=== PATIENT | female | born 1970 | race Hispanic/Latino ===

== ENCOUNTER → 2022-01-30 | Outpatient (CLI) | payer OTHER ==
[~2022-01-30] VITALS: Ht 10.2 cm; Wt 132.4 kg
== END | disposition home or self-care (01) ==
LOC: DTH 08:24
PROVIDERS: ATTEND Surgery
DX: Z71.3 Dietary counseling and surveillance (principal); E78.5 Hyperlipidemia, unspecified; E78.00 Pure hypercholesterolemia, unspecified; I10 Essential (primary) hypertension; K21.9 Gastro-esophageal reflux disease without esophagitis; K76.0 Fatty (change of) liver, not elsewhere classified; G47.33 Obstructive sleep apnea (adult) (pediatric); E66.01 Morbid (severe) obesity due to excess calories; Z68.42 Body mass index [BMI] 45.0-49.9, adult
CPT/HCPCS: 97802

== ENCOUNTER 2022-02-14 07:48 | Day surgery (SDC) | payer OTHER ==
[2022-02-07 12:32] VITALS: BP 156/89
[~2022-02-14] VITALS: Ht 162.6 cm; Wt 130.3 kg
[~2022-02-14 07:48] MED LIST: 0.9% NACL 500ML IV.SOLN 500 ML IV SCH; AEC81 PO; HYDR25TA PO; OMEP20TA2 PO
[2022-02-14 08:55] VITALS: BP 198/58
[2022-02-14] MEDS ORDERED: PROPOFOL 10 MG/ML 20ML VIAL IV ONE (10:23)
[2022-02-14] MEDS ORDERED: LIDOCAINE PF 100MG/5ML (2%) SYRINGE 5ML ONE (10:24)
[2022-02-14 11:45] VITALS: BP 128/75
[2022-02-14 12:15] VITALS: BP 171/95
== END 2022-02-14 12:45 | disposition home or self-care (01) ==
LOC: DAH 07:48 → ENDO 07:48
PROVIDERS: ATTEND Surgery
DX: K21.9 Gastro-esophageal reflux disease without esophagitis (principal); I10 Essential (primary) hypertension; E11.9 Type 2 diabetes mellitus without complications; E66.01 Morbid (severe) obesity due to excess calories; Z90.49 Acquired absence of other specified parts of digestive tract; Z68.41 Body mass index [BMI] 40.0-44.9, adult; Z79.82 Long term (current) use of aspirin; Z79.899 Other long term (current) drug therapy; Z20.822 Contact with and (suspected) exposure to COVID-19
CPT/HCPCS: 71045; 87426; 93005; 43235; 84703; 36415; J2001; J2704; A4215; A4223; A4222; A4221; A4663; A4606

== ENCOUNTER 2022-02-14 14:00 | Inpatient (IN) | payer SELFPAY ==
[2022-02-12 10:42] LABS: BASOPHILS % (AUTO) 0.5 % (0.0-5.0); EOSINOPHILS % (AUTO) 1.5 % (0.0-8.0); HEMATOCRIT 33.2 % (36-48); LYMPHOCYTES % (AUTO) 35.2 % (21.0-51.0); MEAN CORPUSCULAR HEMOGLOBIN 19.5 pg (27.0-33.0); MEAN CORPUSCULAR HGB CONC 28.6 g/dL (32.0-36.0); NEUTROPHILS % (AUTO) 55.6 % (40.0-77.0); NUCLEATED RED BLOOD CELLS 0.2 % (0.0-0.19); PLATELET COUNT (AUTO) 423 K/uL (130-400); RED BLOOD CELL COUNT(AUTO) 4.88 MIL/uL (4.00-5.50); RED CELL DISTRIBUTION WIDTH 20.1 % (11.0-15.5); WHITE BLOOD COUNT (AUTO) 10.2 K/uL (4.8-10.8)
[2022-02-12 10:57] LABS: INR 0.99 (0.85-1.15); PROTHROMBIN TIME 10.8 SEC (9.6-11.6)
[2022-02-12 10:59] LABS: CREATININE 0.7 mg/dL (0.5-1.5); PARTIAL THROMBOPLASTIN TIME 26.2 SEC (26.3-35.5); POTASSIUM 3.9 mmol/L (3.5-5.1)
[~2022-02-14] VITALS: Ht 162.6 cm; Wt 130.3 kg
[~2022-02-14 14:00] MED LIST changes: -0.9% NACL 500ML IV.SOLN 500 ML IV SCH
[2022-02-14 14:56] VITALS: BP 192/80
[2022-02-17] VITALS (23 sets, daily range): BP systolic 120–154; BP diastolic 50–83
[2022-02-17] MEDS ORDERED: CEFAZOLIN SODIUM 1 GM VIAL IVP SCH (05:00)
[2022-02-17] MEDS ORDERED: 0.9%NACL 1000ML 1,000 ML IV ONE (09:14)
[2022-02-17] MEDS ORDERED: FERR-82 PO ×2 (09:23)
[2022-02-17] MEDS ORDERED: MV-M1TAB20 PO ×2 (09:23)
[2022-02-17] MEDS ORDERED: BUPIVACAINE/PF 0.5% 30ML VIAL ONE (09:51)
[2022-02-17] MEDS ORDERED: ONDANSETRON 4MG INJ ONE (10:04)
[2022-02-17] MEDS ORDERED: GLYCOPYRROLATE 1 MG/5 ML SYRINGE ONE (10:04)
[2022-02-17] MEDS ORDERED: LIDOCAINE PF 100MG/5ML (2%) SYRINGE 5ML ONE (10:04)
[2022-02-17] MEDS ORDERED: SUCCINYLCHOLINE 200MG/10ML SYR ONE ×2 (10:04→10:12)
[2022-02-17] MEDS ORDERED: DEXAMETHASONE SOD PHOSPHATE 10MG/ML 1ML VIAL ONE (10:04)
[2022-02-17] MEDS ORDERED: PROPOFOL 10 MG/ML 20ML VIAL IV ONE (10:04)
[2022-02-17] MEDS ORDERED: NEOSTIGMINE 5MG/5ML SYR IV ONE (10:05)
[2022-02-17] MEDS ORDERED: ROCURONIUM 10MG/1ML SYR 10 MG/ML ML ONE (10:05)
[2022-02-17] MEDS ORDERED: MIDAZOLAM HCL 1 MG/ML 2ML VIAL ONE (10:05)
[2022-02-17] MEDS ORDERED: FENTANYL CITRATE PF 50 MCG/1 ML 2ML VIAL ONE (10:06)
[2022-02-17] MEDS ORDERED: CEFAZOLIN SODIUM 2 GM VIAL IV ONE (10:27)
[2022-02-17] MEDS ORDERED: DEXAMETHASONE SOD PHOSPHATE 4 MG/ML 1ML VIAL ONE (10:41)
[2022-02-17] MEDS ORDERED: METOCLOPRAMIDE 10 MG/2 ML VIAL ONE (10:41)
[2022-02-17] MEDS ORDERED: MEPERIDINE-PF 25 MG/ML SYG ONE ×3 (11:10→12:10)
[2022-02-17] MEDS ORDERED: LACTATED RINGERS 1000ML 1,000 ML IV SCH (11:30)
[2022-02-17] MEDS ORDERED: MORPHINE 4 MG SYG IVP PRN (11:30)
[2022-02-17] MEDS: CEFAZOLIN SODIUM 1 GM VIAL IVP SCH ×2 (11:30→18:47)
[2022-02-17] MEDS: ONDANSETRON 4MG INJ IVP PRN (11:49)
[2022-02-17] MEDS: FAMOTIDINE 20MG VIAL IV SCH (20:39)
[2022-02-17] MEDS: ENOXAPARIN SODIUM 30 MG/0.3 ML SQ SCH (20:39)
[2022-02-17] MEDS: KETOROLAC 30MG VIAL (30MG/ML) IVP PRN (20:47)
[2022-02-18] VITALS: BP 144/76
[2022-02-18] MEDS ORDERED: CEFAZOLIN SODIUM 1 GM VIAL IVP SCH (03:00)
[2022-02-18 04:00] VITALS: BP 132/61
[2022-02-18 04:30] LABS: BASOPHILS % (AUTO) 0.2 % (0.0-5.0); HEMATOCRIT 32.1 % (36-48); LYMPHOCYTES % (AUTO) 15.4 % (21.0-51.0); MEAN CORPUSCULAR VOLUME 68.9 fL (79-99); MONOCYTES % (AUTO) 5.4 % (3.0-13.0); NEUTROPHILS % (AUTO) 78.5 % (40.0-77.0); PLATELET COUNT (AUTO) 387 K/uL (130-400); RED BLOOD CELL COUNT(AUTO) 4.66 MIL/uL (4.00-5.50); RED CELL DISTRIBUTION WIDTH 22.4 % (11.0-15.5); WHITE BLOOD COUNT (AUTO) 13.1 K/uL (4.8-10.8)
[2022-02-18 04:44] LABS: CREATININE 0.7 mg/dL (0.5-1.5); POTASSIUM 3.7 mmol/L (3.5-5.1)
[2022-02-18] MEDS: ENOXAPARIN SODIUM 30 MG/0.3 ML SQ SCH (07:27)
[2022-02-18] MEDS: FAMOTIDINE 20MG VIAL IV SCH (07:27)
[2022-02-18 08:03] VITALS: BP 153/73
[2022-02-18] MEDS: ONDANSETRON 4MG INJ IVP PRN (08:42)
[2022-02-18] MEDS: KETOROLAC 30MG VIAL (30MG/ML) IVP PRN (11:09)
[2022-02-18 11:51] VITALS: BP 148/72
== END 2022-02-18 13:15 | disposition home or self-care (01) | DRG 621 ==
LOC: DAHIP 02-17 07:43 → INTOOBSV 02-17 07:43 → OBSVTOIN 02-17 07:43 → 4CH 02-17 12:05
PROVIDERS: ADMIT Surgery; ATTEND Surgery
PROC: 0DB64Z3 Excision of Stomach, Percutaneous Endoscopic Approach, Vertical (ICD-10-PCS; principal; 2022-02-17 09:50)
DX: E66.01 Morbid (severe) obesity due to excess calories (principal); Z68.42 Body mass index [BMI] 45.0-49.9, adult; Z20.822 Contact with and (suspected) exposure to COVID-19
CPT/HCPCS: 36415; 80048; 82948; 85025; 85610; 85730; 86850; 86900; 86901; 87426; G0378; J0330; J0690; J1100; J1650; J1885; J2001; J2175; J2250; J2405; J2704; J2710; J2765; J3010; J3490; J7030; J7120